=== PATIENT | female | born 1960 | race Caucasian/White ===

== ENCOUNTER 2023-01-31 21:53 | Emergency (ER) | payer BC, OTHER ==
[~2023-01-31] VITALS: Ht 154.9 cm; Wt 70.8 kg
[~2023-01-31 21:53] MED LIST: NORCO5 PO
[2023-01-31 22:00] VITALS: BP_SYST 110
--- NOTE | 2023-01-31 22:15 | NUR ---
Pt placed to ER bed 07, to gown, report given to LELIA Mead.
[2023-01-31] MEDS ORDERED: KETOROLAC TROMETHAMINE 30 MG VIAL IM ONE (22:30)
[2023-01-31] MEDS ORDERED: OXYCODONE/ACETAMINOPHEN 5-325 TABLET PO ONE (22:30)
--- NOTE | 2023-01-31 22:46 | NUR ---
FIRST CONTACT WITH PT. ASSESSMENT COMPLETED. AWAITING ADDITIONAL ORDERS.
[2023-02-01] MEDS ORDERED: DICL100G59 TP (00:30)
[2023-02-01 00:52] VITALS: BP_SYST 138
--- NOTE | 2023-02-01 00:55 | NUR ---
Patient given written and verbal discharge instructions and verbalizes understanding. ER MD PEDERSEN discussed with patient the results and treatment provided. Patient in stable condition. ID arm band removed. Rx of DICLOFENAC given. Patient educated on pain management and to follow up with PMD. Pain Scale 2/10. Opportunity for questions provided and answered. Medication side effect fact sheet provided.
== END 2023-02-01 00:52 | disposition home or self-care (01) ==
LOC: SED 21:53
DX: M25.562 Pain in left knee (principal); Z79.899 Other long term (current) drug therapy
CPT/HCPCS: 99285; 73700; 76376; 96372; J1885